=== PATIENT | female | born 1990 | race Two or more races ===

== ENCOUNTER 2024-06-09 17:06 | Emergency (ER) | payer OTHER ==
[~2024-06-09] VITALS: Ht 162.6 cm; Wt 131.5 kg
[~2024-06-09 17:06] MED LIST: PRENATABS RX TA1 TAB PO
[2024-06-09 17:27] VITALS: BP 117/84; O2SAT 94
[2024-06-09] MEDS ORDERED: ONDANSETRON HCL 2 MG/ML VIAL IV ONE (18:15)
[2024-06-09] MEDS ORDERED: 0.9 % SODIUM CHLORIDE 500 ML IV ONE (18:15)
[2024-06-09] MEDS ORDERED: LACTOBACILLUS ACIDOPHILUS 1 CAP CAP PO ONE ×2 (18:15→18:28)
[2024-06-09] MEDS ORDERED: FAMOTIDINE/PF 20 MG/2 ML VIAL IV PUSH ONE (18:15)
[2024-06-09] MEDS ORDERED: ONDANSETRON HCL 2 MG/ML VIAL ONE (18:27)
[2024-06-09] MEDS ORDERED: FAMOTIDINE/PF 20 MG/2 ML VIAL ONE ×2 (18:28→21:45)
[2024-06-09 19:13] LABS: HEMOGLOBIN 13.7 g/dL (12.0-15.00); MEAN CELL VOLUME 93.9 fL (80.00-100.00); MEAN CORPUSCULAR HEMOGLOBIN 31.4 pg (27.00-32.0); MEAN CORPUSCULAR HGB CONC 33.4 g/dl (32.0-36.0); PLATELET COUNT 202 K/uL (150-450); RED BLOOD COUNT 4.36 M/uL (4.00-6.00); RED CELL DISTRIBUTION WIDTH 14.2 % (11.5-14.5)
[2024-06-09 19:54] LABS: ALBUMIN 3.5 gm/dL (3.4-5.0); BILIRUBIN TOTAL 0.54 mg/dL (0.3-1.2); CALCIUM 8.9 mg/dL (8.5-10.1); CREATININE SERUM 0.81 mg/dL (0.55-1.02); GFR 81.94; GLOBULINA 4.1 G/DL (2.4-3.5); POTASSIUM 3.06 mEq/L (3.5-5.1); TOTAL PROTEIN 7.6 gm/dL (6.4-8.2)
[2024-06-09 20:37] LABS: URINE APPEARANCE Cloudy; URINE BILIRRUBIN Small (NEGATIVE); URINE BLOOD Large; URINE COLOR Red; URINE GLUCOSE Negative (NEGATIVE); URINE KETONE Negative (NEGATIVE); URINE LEUKOCYTE Moderate; URINE NITRATE Negative; URINE UROBILINOGEN 0.2 E.U./dl
[2024-06-09 20:56] LABS: URINE CAST 2.06 uL (0.0-1.40); URINE EPITHELIAL CELLS 24.3 uL (0.0-38.8); URINE RBC 160.2 uL (0.0-20.8); URINE WBC 694.1 uL (0.0-23.2)
[2024-06-09 21:07] LABS: URINE BACTERIA > 9821.5 uL (0.0-1933); URINE MUCUS HEAVY; URINE PROTEIN 300 (NEGATIVE)
[2024-06-09] MEDS ORDERED: SUCRALFATE 1 G TABLET PO ONE (21:30)
[2024-06-09] MEDS ORDERED: FAMOTIDINE/PF 20 MG/2 ML VIAL IV ONE (21:30)
[2024-06-09] MEDS ORDERED: PEPCID AC20 MG PO (21:37)
[2024-06-09] MEDS ORDERED: ONDANSETRON ODT4 MG PO (21:37)
[2024-06-09] MEDS ORDERED: INTESTINEX680 M1 PO (21:37)
[2024-06-09] MEDS ORDERED: DUI500 PO ×2 (21:38)
[2024-06-09] MEDS ORDERED: CARAFATE1 GM PO (21:59)
== END 2024-06-09 22:59 ==
LOC: ER 17:09
PROVIDERS: General Practice
DX: A08.4 Viral intestinal infection, unspecified (principal); R53.81 Other malaise; Z20.822 Contact with and (suspected) exposure to COVID-19

== ENCOUNTER 2024-09-26 18:47 | Emergency (ER) | payer OTHER ==
[~2024-09-26] VITALS: Ht 162.6 cm; Wt 130.6 kg
[~2024-09-26 18:47] MED LIST changes: +CARAFATE1 GM PO; +DUI500 PO; +INTESTINEX680 M1 PO; +ONDANSETRON ODT4 MG PO; +PEPCID AC20 MG PO
[2024-09-26] MEDS ORDERED: CEFTRIAXONE SODIUM 1,000 MG VIAL IM ONE (21:45)
[2024-09-26] MEDS ORDERED: CEPHALEXIN500 MG PO (21:51)
== END 2024-09-26 22:06 | disposition home or self-care (01) ==
LOC: ER 19:06
DX: L03.032 Cellulitis of left toe (principal)